=== PATIENT | male | born 1940 | race Caucasian/White ===

== ENCOUNTER → 2017-07-19 | Outpatient (CLI) | payer MEDICARE ==
[~2017-07-19] MED LIST: AEC81 PO; ATEN50TA PO; BENA1TAB18 PO; ENOX100D4 SQ; SIMV20TA2 PO; TAMS0.4C32 PO; TEST1.25 TP; WARF5TAB76 PO
== END | disposition home or self-care (01) ==
LOC: SHCH 09:21
PROVIDERS: ATTEND Internal Medicine Cardiovascular Disease
DX: I51.7 Cardiomegaly (principal); I10 Essential (primary) hypertension; Z95.0 Presence of cardiac pacemaker
CPT/HCPCS: 93306

== ENCOUNTER → 2017-07-29 | Outpatient (CLI) | payer MEDICARE ==
[~2017-07-29] MED LIST changes: +REGADENOSON 0.4 MG/5 ML PF SYG IVP SCH
== END | disposition home or self-care (01) ==
LOC: SHCH 09:25
PROVIDERS: ATTEND Internal Medicine Cardiovascular Disease
DX: I10 Essential (primary) hypertension (principal); I25.10 Atherosclerotic heart disease of native coronary artery without angina pectoris; I48.91 Unspecified atrial fibrillation; E78.5 Hyperlipidemia, unspecified
CPT/HCPCS: 78452; 93017; 96374; A9500 ×2; J2785

== ENCOUNTER → 2018-03-10 | Outpatient (CLI) | payer MEDICARE ==
[~2018-03-10] MED LIST changes: +IOHEXOL 350 MG/ML 100ML INFUS..BTL IV ONE; +IOHEXOL-350 50ML VIAL IV ONE; -REGADENOSON 0.4 MG/5 ML PF SYG IVP SCH
== END | disposition home or self-care (01) ==
LOC: RAH 07:25
PROVIDERS: ATTEND Internal Medicine Cardiovascular Disease
DX: I70.0 Atherosclerosis of aorta (principal); I77.1 Stricture of artery; I73.9 Peripheral vascular disease, unspecified; K57.30 Diverticulosis of large intestine without perforation or abscess without bleeding; I10 Essential (primary) hypertension; E78.5 Hyperlipidemia, unspecified
CPT/HCPCS: 75635; Q9967 ×2

== ENCOUNTER → 2018-04-03 | Outpatient (CLI) | payer MEDICARE ==
[~2018-04-03] MED LIST changes: -IOHEXOL 350 MG/ML 100ML INFUS..BTL IV ONE; -IOHEXOL-350 50ML VIAL IV ONE
== END | disposition home or self-care (01) ==
LOC: SHCH 11:33
PROVIDERS: ATTEND Internal Medicine Cardiovascular Disease
DX: Z09 Encounter for follow-up examination after completed treatment for conditions other than malignant neoplasm (principal); I82.4Y1 Acute embolism and thrombosis of unspecified deep veins of right proximal lower extremity
CPT/HCPCS: 93971

== ENCOUNTER → 2018-08-21 | Outpatient (CLI) | payer MEDICARE | END | disposition home or self-care (01) | LOC: SHCH 09:25 | PROVIDERS: ATTEND Internal Medicine Cardiovascular Disease | DX: I87.2 Venous insufficiency (chronic) (peripheral) (principal) | CPT/HCPCS: 93970 ==

== ENCOUNTER 2019-07-10 07:00 | Day surgery (SDC) | payer MEDICARE ==
[2019-07-06 13:06] LABS: HEMATOCRIT 45.4 % (42-54); MEAN CORPUSCULAR HEMOGLOBIN 35.6 pg (27.0-33.0); MEAN CORPUSCULAR HGB CONC 34.1 g/dL (32.0-36.0); MEAN CORPUSCULAR VOLUME 104.4 fL (79-99); PLATELET COUNT (AUTO) 180 K/uL (130-400); RED BLOOD CELL COUNT(AUTO) 4.35 MIL/uL (4.50-6.20); RED CELL DISTRIBUTION WIDTH 14.5 % (11.0-15.5); WHITE BLOOD COUNT (AUTO) 7.7 K/uL (4.8-10.8)
[2019-07-06 13:16] LABS: INR 2.26 (0.85-1.15); PARTIAL THROMBOPLASTIN TIME 36.7 SEC (26.3-35.5)
[2019-07-06 13:35] VITALS: BP 144/80
--- NOTE | 2019-07-06 14:25 | NUR ---
SPOKE TO [facility] AND IS AWARE.
[2019-07-06 14:50] LABS: LYMPHOCYTES % (MANUAL) 10 % (22-44); MONOCYTES % (MANUAL) 10 % (2-9); SEGMENTED NEUTROPHILS % 80 % (40-70)
[2019-07-06 14:51] LABS: MAN.DIFF COMMENT-IMPRESSION MANUAL DIFFERENTIAL; PLATELET MORPHOLOGY COMMENT ADEQUATE
--- NOTE | 2019-07-09 14:02 | NUR ---
LABS ABNORMAL PT/ INR. PTT REPORTED TO DR. JORGENSEN , FURTHER ORDERS GIVEN AND WILL BE CARRIED OUT
[~2019-07-10] VITALS: Ht 182.9 cm; Wt 109.3 kg
[2019-07-10] VITALS (9 sets, daily range): BP systolic 110–178; BP diastolic 71–83
[~2019-07-10 07:00] MED LIST changes: +BENA20TA10 PO; +CEFAZOLIN SODIUM 1 GM VIAL IVP SCH; -ENOX100D4 SQ; +FOLIC ACID; +ROSU20TA31 PO; -SIMV20TA2 PO; +SODIUM CHLORIDE 0.9% 1000ML 1,000 ML IV SCH; -TAMS0.4C32 PO; -TEST1.25 TP; +TEST200V21 IM; +THIA100T91 PO; +WARF-57 PO; +WARF4TAB72 PO; -WARF5TAB76 PO
[2019-07-10 07:47] LABS: INR 1.42 (0.85-1.15); PROTHROMBIN TIME 14.7 SEC (9.6-11.6)
--- NOTE | 2019-07-10 07:59 | NUR ---
LABS INFORMED CORTES STARR OF [place] PT/INR RESULTS. OK TO PROCEED WITH PLANNED PROCEDURE.
--- NOTE | 2019-07-10 08:45 | NUR ---
PROCEDURE PT TAKEN TO PROCEDURE. DENIES ANY PAIN AT THIS TIME.
[2019-07-10] MEDS ORDERED: CEFAZOLIN SODIUM 1 GM VIAL ONE (09:00)
[2019-07-10] MEDS ORDERED: BUPIVACAINE/PF 0.25% 30ML VIAL IJ ONE (09:00)
[2019-07-10] MEDS ORDERED: FENTANYL CITRATE PF 50 MCG/1 ML 2ML VIAL ONE (09:02)
[2019-07-10] MEDS ORDERED: MIDAZOLAM HCL 1 MG/ML 2ML VIAL ONE ×2 (09:02→09:57)
[2019-07-10] MEDS ORDERED: LIDOCAINE HCL 1% MDV 50ML VIAL ONE (09:02)
[2019-07-10] MEDS ORDERED: MEPERIDINE-PF 25 MG/ML SYG ONE (09:16)
--- NOTE | 2019-07-10 10:55 | NUR ---
PT PT HERE BY COPY CLERK STAFF BECKY GAXIOLA. PT DOING WELL. DENIES ANY PAIN. SITE TO LEFT UPPER CHEST SOFT TO TOUCH. DRY AND INTACT. NO BLEEDING, OOZING NOTED TO SITE.
[2019-07-10] MEDS ORDERED: ACETAMINOPHEN-CODEINE 300/30MG TAB PO PRN (11:00)
--- NOTE | 2019-07-10 11:10 | NUR ---
SITE CHECK SITE TO LEFT UPPER CHEST SOFT TO TOUCH. NO BLEEDING, OOZING NOTED TO SITE.
--- NOTE | 2019-07-10 11:25 | NUR ---
SITE CHECK SITE TO LEFT UPPER CHEST SOFT TO TOUCH. NO BLEEDING, OOZING NOTED TO SITE.
--- NOTE | 2019-07-10 11:40 | NUR ---
SITE CHECK SITE TO LEFT UPPER CHEST SOFT TO TOUCH. NO BLEEDING, OOZING NOTED TO SITE.
--- NOTE | 2019-07-10 11:55 | NUR ---
SITE CHECK SITE TO LEFT UPPER CHEST SOFT TO TOUCH. NO BLEEDING, OOZING NOTED TO SITE.
--- NOTE | 2019-07-10 12:25 | NUR ---
SITE CHECK SITE TO LEFT UPPER CHEST SOFT TO TOUCH. NO BLEEDING, OOZING NOTED TO SITE.
--- NOTE | 2019-07-10 12:55 | NUR ---
SITE CHECK SITE TO LEFT UPPER CHEST SOFT TO TOUCH. NO BLEEDING, OOZING NOTED TO SITE.
--- NOTE | 2019-07-10 13:55 | NUR ---
SITE CHECK SITE TO LEFT UPPER CHEST SOFT TO TOUCH. NO BLEEDING, OOZING NOTED TO SITE.
--- NOTE | 2019-07-10 14:05 | NUR ---
DISCHARGE ORAL AND WRITTEN DISCHARGE INSTRUCTIONS GIVEN TO PT AND PTS IN REGARDS TO DRESSING CHANGES FOR 5 DAYS AND REPORTING ANY BLEEDING, FEVER, PAIN. BOTH VERBALIZED UNDERSTANDING. NO OTHER QUESTIONS AT THIS TIME.
== END 2019-07-10 14:15 | disposition home or self-care (01) ==
LOC: DAH 07:00
PROVIDERS: ATTEND Internal Medicine Cardiovascular Disease
DX: Z45.010 Encounter for checking and testing of cardiac pacemaker pulse generator [battery] (principal); I48.21 Permanent atrial fibrillation; I45.10 Unspecified right bundle-branch block; Z79.82 Long term (current) use of aspirin; Z79.899 Other long term (current) drug therapy; I10 Essential (primary) hypertension; I25.10 Atherosclerotic heart disease of native coronary artery without angina pectoris; Z90.89 Acquired absence of other organs
CPT/HCPCS: 33227; 36415 ×2; 80048; 85025; 85610 ×2; 85730; 93005; A4215; A4216; A4221; A4222; A4223 ×3; A4606; A4663; C1786; J0690; J2250; J3010; J3490 ×2; J7030; 99156; 99157; J2175

== ENCOUNTER → 2019-11-16 | Outpatient (CLI) | payer MEDICARE | END | disposition home or self-care (01) | LOC: SHCH 09:49 | PROVIDERS: ATTEND Internal Medicine Cardiovascular Disease | DX: I73.9 Peripheral vascular disease, unspecified (principal); I87.2 Venous insufficiency (chronic) (peripheral) ==

== ENCOUNTER → 2019-12-14 | Outpatient (CLI) | payer MEDICARE ==
[~2019-12-14] MED LIST changes: -CEFAZOLIN SODIUM 1 GM VIAL IVP SCH; -SODIUM CHLORIDE 0.9% 1000ML 1,000 ML IV SCH
[2019-12-14 11:08] LABS: BASOPHILS % (AUTO) 0.2 % (0.0-5.0); EOSINOPHILS % (AUTO) 1.3 % (0.0-8.0); HEMATOCRIT 45.3 % (42-54); LYMPHOCYTES % (AUTO) 20.6 % (21.0-51.0); MEAN CORPUSCULAR HEMOGLOBIN 32.8 pg (27.0-33.0); MEAN CORPUSCULAR VOLUME 96.6 fL (79-99); MONOCYTES % (AUTO) 12.8 % (3.0-13.0); NEUTROPHILS % (AUTO) 64.8 % (40.0-77.0); PLATELET COUNT (AUTO) 163 K/uL (130-400); RED BLOOD CELL COUNT(AUTO) 4.69 MIL/uL (4.50-6.20); RED CELL DISTRIBUTION WIDTH 15.5 % (11.0-15.5); WHITE BLOOD COUNT (AUTO) 6.1 K/uL (4.8-10.8)
[2019-12-14 11:27] LABS: APPEARANCE,URINE Cloudy (CLEAR); BILIRUBIN,URINE Negative (NEGATIVE); COLOR,URINE Yellow (YELLOW); GLUCOSE, URINE (UA) Negative (NEGATIVE); KETONES,URINE Negative (NEGATIVE); LEUKOCYTE ESTERASE ,URINE Negative (NEGATIVE); NITRATE,URINE Negative (NEGATIVE); OCCULT BLOOD,URINE Negative (NEGATIVE); PROTEIN,URINE Negative (NEGATIVE)
[2019-12-14 11:30] LABS: CREATININE 0.9 mg/dL (0.5-1.5); POTASSIUM 4.3 mmol/L (3.5-5.1)
[2019-12-14 11:31] LABS: INR 1.89 (0.85-1.15); PARTIAL THROMBOPLASTIN TIME 39.9 SEC (26.3-35.5); PROTHROMBIN TIME 19.9 SEC (9.6-11.6)
[2019-12-14 12:08] LABS: BACTERIA,URINE None Seen /HPF (None Seen); RBC,URINE None Seen /HPF (0-1); SQUAMOUS EPITHELIAL CELL,UR 0-2 /HPF (0-2); WBC,URINE None Seen /HPF (0-1)
== END ==
LOC: EDSTATUS 09:00 → LAB 10:58
PROVIDERS: ATTEND Internal Medicine Cardiovascular Disease
DX: Z01.818 Encounter for other preprocedural examination (principal); I73.9 Peripheral vascular disease, unspecified; Z79.01 Long term (current) use of anticoagulants
CPT/HCPCS: 36415; 71045; 80048; 81001; 85025; 85610; 85730; 93005

== ENCOUNTER 2020-02-26 05:56 | Day surgery (SDC) | payer MEDICARE ==
[2020-02-22 14:07] LABS: BASOPHILS % (AUTO) 0.2 % (0.0-5.0); EOSINOPHILS % (AUTO) 2.2 % (0.0-8.0); HEMATOCRIT 38.8 % (42-54); LYMPHOCYTES % (AUTO) 22.4 % (21.0-51.0); MEAN CORPUSCULAR HEMOGLOBIN 33.8 pg (27.0-33.0); MEAN CORPUSCULAR VOLUME 99.2 fL (79-99); MONOCYTES % (AUTO) 14.1 % (3.0-13.0); NEUTROPHILS % (AUTO) 60.8 % (40.0-77.0); PLATELET COUNT (AUTO) 203 K/uL (130-400); RED BLOOD CELL COUNT(AUTO) 3.91 MIL/uL (4.50-6.20); RED CELL DISTRIBUTION WIDTH 15.8 % (11.0-15.5)
[2020-02-22 14:14] LABS: APPEARANCE,URINE Clear (CLEAR); BILIRUBIN,URINE Negative (NEGATIVE); COLOR,URINE Yellow (YELLOW); GLUCOSE, URINE (UA) Negative (NEGATIVE); KETONES,URINE Negative (NEGATIVE); LEUKOCYTE ESTERASE ,URINE Negative (NEGATIVE); NITRATE,URINE Negative (NEGATIVE); OCCULT BLOOD,URINE Negative (NEGATIVE); PH,URINE 7.5 (5.0-8.0); PROTEIN,URINE Negative (NEGATIVE)
[2020-02-22 14:17] LABS: CREATININE 0.9 mg/dL (0.5-1.5); POTASSIUM 4.2 mmol/L (3.5-5.1)
[2020-02-22 14:21] LABS: INR 2.39 (0.85-1.15)
[2020-02-22 14:42] VITALS: BP 114/65
--- NOTE | 2020-02-22 15:05 | NUR ---
Abnormal labs: Spoke to Alden and made him aware of PT/INR results and chest xray. States to inform pt to hold Coumadin as of today.
--- NOTE | 2020-02-22 15:28 | NUR ---
Pt aware Spoke to pt and made him aware to stop Coumadin. Pt stated he took last dose last night and will be holding it until further notice.
[~2020-02-26] VITALS: Ht 185.4 cm; Wt 93.9 kg
[2020-02-26] VITALS (13 sets, daily range): BP systolic 128–164; BP diastolic 70–95
[~2020-02-26 05:56] MED LIST changes: -AEC81 PO; +ASPI-1005 PO; +GABA600T10 PO; +MELA10TA2 PO; +SODIUM CHLORIDE 0.9% 500ML 500 ML IV SCH; -TEST200V21 IM; -WARF-57 PO
[2020-02-26] MEDS ORDERED: SODIUM CHLORIDE 0.9% 1000ML 1,000 ML IV ONE (07:11)
[2020-02-26] MEDS ORDERED: SODIUM BICARB 50MEQ 50ML VIAL ONE (07:18)
[2020-02-26] MEDS ORDERED: HEPARIN SODIUM 1000UNIT/ML 10ML VIAL ONE (07:18)
[2020-02-26] MEDS ORDERED: NITROGLYCERIN 2 MG/VIAL VIAL IV ONE (07:18)
[2020-02-26] MEDS ORDERED: IODIXANOL 320 MG/ML 100 ML VIAL ONE (07:18)
[2020-02-26] MEDS ORDERED: LIDOCAINE HCL 2% 20ML ONE (07:19)
[2020-02-26] MEDS ORDERED: MIDAZOLAM HCL 1 MG/ML 2ML VIAL ONE ×3 (07:29→09:28)
[2020-02-26] MEDS ORDERED: MEPERIDINE-PF 25 MG/ML SYG ONE ×3 (07:29→09:28)
[2020-02-26] MEDS ORDERED: SODIUM CHLORIDE 0.9% 1000ML 1,000 ML IV SCH (10:07)
[2020-02-26] MEDS ORDERED: CLOPIDOGREL BISULFATE 300 MG TAB ONE (10:10)
== END 2020-02-26 16:40 | disposition home or self-care (01) ==
LOC: DAH 05:56
PROVIDERS: ATTEND Internal Medicine Cardiovascular Disease
DX: L97.529 Non-pressure chronic ulcer of other part of left foot with unspecified severity (principal); I70.202 Unspecified atherosclerosis of native arteries of extremities, left leg; Z95.0 Presence of cardiac pacemaker; Z95.5 Presence of coronary angioplasty implant and graft; I48.20 Chronic atrial fibrillation, unspecified; I25.10 Atherosclerotic heart disease of native coronary artery without angina pectoris; I10 Essential (primary) hypertension; E78.5 Hyperlipidemia, unspecified; I49.5 Sick sinus syndrome; Z79.01 Long term (current) use of anticoagulants; Z79.82 Long term (current) use of aspirin; Z79.899 Other long term (current) drug therapy
CPT/HCPCS: 36415 ×2; 37224; 37228; 37232; 71045; 75625; 75716; 80048; 81003; 85025; 85347 ×3; 85610; 85730; 93005; 96360; 96361; A4215; A4216; A4221; A4222; A4223 ×3; A4606; A4663; C1725 ×4; C1760; C1769 ×6; C1893; C1894; C2623; J1644 ×2; J2175 ×3; J2250 ×3; J3490 ×3; J7030; Q9967; 75630; 99156; 99157

== ENCOUNTER 2020-05-20 06:00 | Day surgery (SDC) | payer MEDICARE ==
[2020-05-13 11:16] LABS: BASOPHILS % (AUTO) 0.2 % (0.0-5.0); EOSINOPHILS % (AUTO) 2.5 % (0.0-8.0); HEMATOCRIT 37.3 % (42-54); LYMPHOCYTES % (AUTO) 15.4 % (21.0-51.0); MEAN CORPUSCULAR HEMOGLOBIN 34.4 pg (27.0-33.0); MEAN CORPUSCULAR VOLUME 101.1 fL (79-99); MONOCYTES % (AUTO) 11.2 % (3.0-13.0); NEUTROPHILS % (AUTO) 70.3 % (40.0-77.0); PLATELET COUNT (AUTO) 195 K/uL (130-400); RED BLOOD CELL COUNT(AUTO) 3.69 MIL/uL (4.50-6.20); RED CELL DISTRIBUTION WIDTH 13.1 % (11.0-15.5); WHITE BLOOD COUNT (AUTO) 5.7 K/uL (4.8-10.8)
[2020-05-13 11:24] LABS: POTASSIUM 4.2 mmol/L (3.5-5.1)
[2020-05-13 11:29] LABS: INR 1.98 (0.85-1.15); PARTIAL THROMBOPLASTIN TIME 41.6 SEC (26.3-35.5); PROTHROMBIN TIME 20.8 SEC (9.6-11.6)
--- NOTE | 2020-05-19 11:00 | NUR ---
Abnormal EKG Abnormal EKG reported to Dr. Gerber. No new orders given. Okay to proceed with procedure.
--- NOTE | 2020-05-19 11:30 | NUR ---
PT/PTT INFORMED DR. LANDON OF ABNORMAL PT/PTT. ORDERS RECEIVED TO REDRAW PT/PTT ON AM OF PROCEDURE.
[2020-05-20] VITALS (11 sets, daily range): BP systolic 105–133; BP diastolic 46–72
[~2020-05-20] VITALS: Ht 182.9 cm; Wt 96.7 kg
[~2020-05-20 06:00] MED LIST changes: -BENA20TA10 PO; +CILO100T PO; -SODIUM CHLORIDE 0.9% 500ML 500 ML IV SCH; -WARF4TAB72 PO; +WARF6TAB49 PO
[2020-05-20 06:45] LABS: PARTIAL THROMBOPLASTIN TIME 30.3 SEC (26.3-35.5); PROTHROMBIN TIME 10.8 SEC (9.6-11.6)
[2020-05-20] MEDS ORDERED: LIDOCAINE HCL-MPF 0.5% 50ML VIAL IJ ONE (06:55)
--- NOTE | 2020-05-20 07:00 | NUR ---
PRE-OP CARE DONE. PT NOTED TO HAVE BILATERAL LOWER EXTREMITY DRESSINGS TO BOTH LEGS BELOW KNEES. HE DESCRIBED LESIONS "ULCERS" THAT HE IS GETTING WOUND CARE TWICE A WEEK AT [facility] AND DRESSING CHANGES AT HOME PER [facility].
[2020-05-20] MEDS ORDERED: FENTANYL CITRATE PF 50 MCG/1 ML 2ML VIAL ONE (07:35)
[2020-05-20] MEDS ORDERED: MIDAZOLAM HCL 1 MG/ML 2ML VIAL ONE (07:35)
[2020-05-20] MEDS ORDERED: TRAM100T40 PO (07:42)
[2020-05-20] MEDS ORDERED: LACTATED RINGERS 1000ML 1,000 ML IV ONE (07:49)
[2020-05-20] MEDS ORDERED: CEFAZOLIN SODIUM 1 GM VIAL IVP ONE (08:00)
--- NOTE | 2020-05-20 10:20 | NUR ---
POST OP RECEIVED PT AND REPORT FROM ANA M PENA FROM PACU. PT IN NO DISTRESS WITH DRESSING TO LEFT HAND INTACT. PT ORIENTED TO ROOM AND CALL LIGHT. WILL CONTINUE TO MONITOR
--- NOTE | 2020-05-20 10:54 | NUR ---
DISCHARGE PT AND GIVEN D/C INSTRUCTIONS. UNDERSTANDING VOICED. PT TAKEN OUT VIA W/C BY MARIE BURNHAM. DRESSING TO LEFT HAND CLEAN AND DRY AND INTACT.
== END 2020-05-20 10:54 | disposition home or self-care (01) ==
LOC: DAH 06:00
PROVIDERS: ATTEND Neurological Surgery
DX: G56.02 Carpal tunnel syndrome, left upper limb (principal); Z20.828 Contact with and (suspected) exposure to other viral communicable diseases; I10 Essential (primary) hypertension; I48.91 Unspecified atrial fibrillation; M19.90 Unspecified osteoarthritis, unspecified site; Z95.0 Presence of cardiac pacemaker; Z79.01 Long term (current) use of anticoagulants; Z79.899 Other long term (current) drug therapy; Z79.82 Long term (current) use of aspirin
CPT/HCPCS: 36415 ×2; 64721; 80048; 85025; 85610 ×2; 85730 ×2; 93005; A4215; A4221; A4222; A4223; A4663; A6260; C9803; J0690; J2250; J3010; J3490; J7120; U0003

== ENCOUNTER → 2020-08-12 | Outpatient (CLI) | payer MEDICARE ==
[~2020-08-12] MED LIST changes: +TRAM100T40 PO
== END | disposition home or self-care (01) ==
LOC: RAH 10:42
PROVIDERS: ATTEND Physical Medicine & Rehabilitation
DX: M50.323 Other cervical disc degeneration at C6-C7 level (principal)
CPT/HCPCS: 72040

== ENCOUNTER → 2020-08-15 | Outpatient (CLI) | payer MEDICARE | END | disposition home or self-care (01) | LOC: RAH 14:26 | PROVIDERS: ATTEND Physical Medicine & Rehabilitation | DX: M47.22 Other spondylosis with radiculopathy, cervical region (principal); M50.11 Cervical disc disorder with radiculopathy, high cervical region; M50.10 Cervical disc disorder with radiculopathy, unspecified cervical region | CPT/HCPCS: 72125 ==

== ENCOUNTER → 2020-09-03 | Outpatient (CLI) | payer MEDICARE | END | disposition home or self-care (01) | LOC: SHCH 09:46 | PROVIDERS: ATTEND Internal Medicine Cardiovascular Disease | DX: R59.0 Localized enlarged lymph nodes (principal); I73.9 Peripheral vascular disease, unspecified; I87.2 Venous insufficiency (chronic) (peripheral) | CPT/HCPCS: 93970 ==

== ENCOUNTER 2020-10-28 05:58 | Day surgery (SDC) | payer MEDICARE ==
[2020-10-27 11:30] VITALS: BP 104/62
[~2020-10-28] VITALS: Ht 182.9 cm; Wt 91.6 kg
[2020-10-28] VITALS (9 sets, daily range): BP systolic 103–131; BP diastolic 58–74
[~2020-10-28 05:58] MED LIST changes: +ACET-2743 PO; +ATEN25TA PO; -ATEN50TA PO; -BENA1TAB18 PO; +BENA20TA10 PO; +CLOP75TA14 PO; -FOLIC ACID; +FOLIC ACID PO; -THIA100T91 PO; -TRAM100T40 PO; +VITAMIN B1 PO; -WARF6TAB49 PO
[2020-10-28] MEDS: CEFAZOLIN SODIUM 1 GM VIAL IVP SCH ×2 (06:00→07:20)
[2020-10-28] MEDS ORDERED: LACTATED RINGERS 1000ML 1,000 ML IV ONE (06:37)
[2020-10-28] MEDS ORDERED: LIDOCAINE HCL-MPF 0.5% 50ML VIAL IJ ONE (06:39)
[2020-10-28] MEDS ORDERED: MIDAZOLAM HCL 1 MG/ML 2ML VIAL ONE (06:40)
[2020-10-28] MEDS ORDERED: FENTANYL CITRATE PF 50 MCG/1 ML 2ML VIAL ONE (06:40)
[2020-10-28] MEDS ORDERED: PROPOFOL 10 MG/ML 20ML VIAL IV ONE (06:42)
== END 2020-10-28 09:46 | disposition home or self-care (01) ==
LOC: DAH 05:58
PROVIDERS: ATTEND Neurological Surgery
DX: G56.01 Carpal tunnel syndrome, right upper limb (principal); Z20.822 Contact with and (suspected) exposure to COVID-19; I25.10 Atherosclerotic heart disease of native coronary artery without angina pectoris; I10 Essential (primary) hypertension; M19.90 Unspecified osteoarthritis, unspecified site; I48.91 Unspecified atrial fibrillation; Z72.89 Other problems related to lifestyle; Z86.718 Personal history of other venous thrombosis and embolism; Z79.01 Long term (current) use of anticoagulants; Z98.42 Cataract extraction status, left eye; Z98.41 Cataract extraction status, right eye; Z95.5 Presence of coronary angioplasty implant and graft
CPT/HCPCS: 64721; A4215 ×2; A4216; A4221; A4222; A4223; A4657; A4663; A6260; C9803; J0690; J2250; J2704; J3010; J3490; J7120; U0003

== ENCOUNTER → 2021-01-06 | Outpatient (CLI) | payer MEDICARE ==
[~2021-01-06] MED LIST changes: -CLOP75TA14 PO
== END | disposition home or self-care (01) ==
LOC: RAH 14:59
PROVIDERS: ATTEND Internal Medicine Critical Care Medicine
DX: M79.604 Pain in right leg (principal)
CPT/HCPCS: 93971

== ENCOUNTER → 2023-01-17 | Outpatient (CLI) | payer MEDICARE ==
[~2023-01-17] MED LIST changes: +BENA-8 PO; -BENA20TA10 PO; -CILO100T PO; +CILO100T3 PO; -ROSU20TA31 PO; +ROSU20TA73 PO
== END | disposition home or self-care (01) ==
LOC: RAH 10:14
PROVIDERS: ATTEND Urology
DX: R31.29 Other microscopic hematuria (principal)
CPT/HCPCS: 76770

== ENCOUNTER → 2023-08-12 | Outpatient (CLI) | payer MEDICARE | END | disposition home or self-care (01) | LOC: SHCH 10:37 | PROVIDERS: ATTEND Internal Medicine Cardiovascular Disease | DX: I08.3 Combined rheumatic disorders of mitral, aortic and tricuspid valves (principal); I48.21 Permanent atrial fibrillation; I11.9 Hypertensive heart disease without heart failure; Z95.0 Presence of cardiac pacemaker | CPT/HCPCS: 93306 ==

== ENCOUNTER → 2023-08-27 | Outpatient (CLI) | payer MEDICARE | END | disposition home or self-care (01) | LOC: SHCH 10:39 | PROVIDERS: ATTEND Internal Medicine Cardiovascular Disease | DX: R60.9 Edema, unspecified (principal) | CPT/HCPCS: 93970 ==

== ENCOUNTER → 2023-09-09 | Outpatient (CLI) | payer MEDICARE ==
[2023-09-09] MEDS: REGADENOSON 0.4 MG/5 ML PF SYG IVP ONE (13:55)
== END | disposition home or self-care (01) ==
LOC: SHCH 07:44
PROVIDERS: ATTEND Internal Medicine Cardiovascular Disease
DX: I25.10 Atherosclerotic heart disease of native coronary artery without angina pectoris (principal)
CPT/HCPCS: 78452; 96374; 93017; J2785; A9500 ×2

== ENCOUNTER → 2024-07-10 | Outpatient (CLI) | payer MEDICARE ==
[~2024-07-10] MED LIST changes: +GABA-1405 PO; -GABA600T10 PO; -ROSU20TA73 PO; +ROSU20TA98 PO
--- NOTE | 2024-07-10 15:49 | HMCSR ---
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 (R) 111.1cm/sec, Biphasic, Prof Fem Art. (L) 63.4cm/sec, Biphasic, Fem Art Prox. (R) 72.5cm/sec, Biphasic, Fem Art Prox. (L) 54.4cm/sec, Biphasic, Fem Art Mid. (R) 87.3cm/sec, Biphasic, Fem Art Mid. (L) 49.3cm/sec, Biphasic, Fem Art Dist (R) 79.9cm/sec, Biphasic, Fem Art Dist. (L) 54.4cm/sec, Biphasic, Pop Art(AK) (R) 59.5cm/sec, Biphasic, Pop Art (AK) (L) 101.4cm/sec, Biphasic, Pop Art (Fossa)(R) 53.0cm/sec, Biphasic, Pop Art (Fossa) (L) 77.0cm/sec, Biphasic, Pop Art(BK) (R) 53.8cm/sec, Biphasic, Pop Art (BK) (L) 76.3cm/sec, Biphasic, COOK FISH AND CHIPS Prox. (R) 81.0cm/sec, Monophasic, COOK FISH AND CHIPS Prox. (L) 48.8cm/sec, Biphasic, COOK FISH AND CHIPS Mid. (R) cm/sec, Occluded, COOK FISH AND CHIPS Mid. (L) 41.0cm/sec, Biphasic, COOK FISH AND CHIPS Dist. (R) cm/sec, Occluded, COOK FISH AND CHIPS Dist. (L) cm/sec, Occluded, Per Art Prox. (R) 44.9cm/sec, Monophasic, Per Art Prox. (L) cm/sec, Occluded, Per Art Mid. (R) 45.0cm/sec, Monophasic, Per Art Mid. (L) cm/sec, Occluded, Per Art Dist. (R) 37.0cm/sec, Monophasic, Per Art Dist. (L) cm/sec, Occluded, INES Prox. (R) 75.9cm/sec, Biphasic, INES Prox. (L) 53.8cm/sec, Biphasic, INES Mid. (R) 45.0cm/sec, Monophasic INES Mid. (L) 38.0cm/sec, Biphasic, INES Dist. (R) cm/sec, Occluded, INES Dist. (L) 47.1cm/sec, Biphasic, Technologist Impression EVIDENCE OF BILATERAL INFRAPOPLITIAL DISEASE. OCCLUSION OF THE RT. MID TO DISTAL COOK FISH AND CHIPS AND DISTAL INES. OCCLUSION OF THE LT. DISTAL COOK FISH AND CHIPS AND PERONEAL ARTERY. EVIDENCE OF BAKERS CYST ON RT. POP AREA. Conclusion EVIDENCE OF BILATERAL INFRAPOPLITIAL DISEASE. OCCLUSION OF THE RT. MID TO DISTAL COOK FISH AND CHIPS AND DISTAL INES. OCCLUSION OF THE LT. DISTAL COOK FISH AND CHIPS AND PERONEAL ARTERY. EVIDENCE OF BAKERS CYST ON RT. POP AREA. Conclusion EVIDENCE OF BILATERAL INFRAPOPLITIAL DISEASE. OCCLUSION OF THE RT. MID TO DISTAL COOK FISH AND CHIPS AND DISTAL INES. OCCLUSION OF THE LT. DISTAL COOK FISH AND CHIPS AND PERONEAL ARTERY. EVIDENCE OF BAKERS CYST ON RT. POP AREA.
== END | disposition home or self-care (01) ==
LOC: SHCH 10:17
PROVIDERS: ATTEND Internal Medicine Cardiovascular Disease
DX: M71.21 Synovial cyst of popliteal space [Baker], right knee (principal); I77.89 Other specified disorders of arteries and arterioles; I73.9 Peripheral vascular disease, unspecified
CPT/HCPCS: 93925